=== PATIENT | male | born 2000 | race African-American/Black ===

== ENCOUNTER 2019-06-27 12:42 | Emergency (ER) | payer BC ==
--- NOTE | 2019-06-27 15:22 | EDPHYS ---
Physician Documentation [facility] Name: Kyle Patton Age: 18 yrs Sex: Male : 2000 Arrival Date: 06/27/2019 Time: 12:52 Bed 27 Private MD: ED Physician Jonathan Rivero HPI: 06/27 16:21 This 18 yrs old Black Male presents to ER via Ambulatory with complaints of Sore Throat.snw 16:21 The patient presents with sore throat. The patient describes throat pain as swollen . snw Onset: The symptoms/episode began/occurred suddenly. Severity of symptoms: At their worst the symptoms were moderate. Associated signs and symptoms: Pertinent negatives chest pain, cough, fever, headache, shortness of breath. It is unknown whether or not the patient has had similar symptoms in the past. It is unknown whether or not the patient has recently seen a physician. Historical: - Allergies: 13:09 No Known Allergies; ca1 - Home Meds: 13:09 None [Active]; ca1 - PMHx: 13:09 Asthma; ca1 - PSHx: 13:09 None; ca1 - Immunization history:: Adult Immunizations up to date, Flu vaccine is not up to date. - Coronavirus screen:: The patient has NOT traveled to [place] in the past 14 days. The patient has NOT had contact with known/suspected case of Coronavirus?. - Social history:: Smoking status: Reported history of juuling and/or vaping. - Ebola Screening: : Patient negative for fever greater than or equal to 101.5 degrees Fahrenheit, and additional compatible Ebola Virus Disease symptoms Patient denies exposure to infectious person Patient denies travel to an Ebola-affected area in the 21 days before illness onset No symptoms or risks identified at this time. ROS: 16:18 Constitutional: Negative for fever, chills, and weight loss, Eyes: Negative for injury, snw pain, redness, and discharge, Neck: Negative for injury, pain, and swelling, Cardiovascular: Negative for chest pain, palpitations, and edema, Respiratory: Negative for shortness of breath, cough, wheezing, and pleuritic chest pain, Abdomen/GI: Negative for abdominal pain, nausea, vomiting, diarrhea, and constipation, Back: Negative for injury and pain, : Negative for injury, bleeding, discharge, and swelling, MS/Extremity: Negative for injury and deformity, Skin: Negative for injury, rash, and discoloration, Neuro: Negative for headache, weakness, numbness, tingling, and seizure, Psych: Negative for depression, anxiety, suicide ideation, homicidal ideation, and hallucinations. 16:18 ENT: Positive for sore throat, feels swollen. Exam: 16:15 Constitutional: This is a well developed, well nourished patient who is awake, alert, snw and in no acute distress. Head/Face: Normocephalic, atraumatic. Eyes: Pupils equal round and reactive to light, extra-ocular motions intact. Lids and lashes normal. Conjunctiva and sclera are non-icteric and not injected. Cornea within normal limits. Periorbital areas with no swelling, redness, or edema. Neck: Trachea midline, no thyromegaly or masses palpated, and no cervical lymphadenopathy. Supple, full range of motion without nuchal rigidity, or vertebral point tenderness. No Meningismus. Chest/axilla: Normal chest wall appearance and motion. Nontender with no deformity. No lesions are appreciated. Cardiovascular: Regular rate and rhythm with a normal S1 and S2. No gallops, murmurs, or rubs. Normal PMI, no JVD. No pulse deficits. Respiratory: Lungs have equal breath sounds bilaterally, clear to auscultation and percussion. No rales, rhonchi or wheezes noted. No increased work of breathing, no retractions or nasal flaring. Abdomen/GI: Soft, non-tender, with normal bowel sounds. No distension or tympany. No guarding or rebound. No evidence of tenderness throughout. Back: No spinal tenderness. No costovertebral tenderness. Full range of motion. Skin: Warm, dry with normal turgor. Normal color with no rashes, no lesions, and no evidence of cellulitis. MS/ Extremity: Pulses equal, no cyanosis. Neurovascular intact. Full, normal range of motion. Neuro: Awake and alert, GCS 15, oriented to person, place, time, and situation. Cranial nerves II-XII grossly intact. Motor strength 5/5 in all extremities. Sensory grossly intact. Cerebellar exam normal. Normal gait. Psych: Awake, alert, with orientation to person, place and time. Behavior, mood, and affect are within normal limits. 16:15 ENT: External ear(s): are unremarkable, Ear canal(s): erythema, TM's: fluid levels, bilaterally, Nose: is normal, Mouth: is normal, Posterior pharynx: erythema, that is mild, Voice: is normal. Vital Signs: 13:09 BP 132 / 86; Pulse 67; Resp 16 S; Temp 98.4(O); Pulse Ox 100% on R/A; Weight 89.81 kg ca1 (R); Height 5 ft. 10 in. (177.80 cm) (R); Pain 1/10; 14:39 BP 110 / 76; Pulse 58; Resp 14; Temp 98.9; Pulse Ox 99% on R/A; Pain 4/10; ch 15:32 BP 112 / 68; Pulse 60; Resp 14; Temp 98.7; Pulse Ox 99% on R/A; Pain 2/10; ch 13:09 Body Mass Index 28.41 (89.81 kg, 177.80 cm) ca1 MDM: 15:07 Patient medically screened. snw 15:57 Data reviewed: vital signs, nurses notes. Data interpreted: Pulse oximetry: on room air snw is 99 %. Interpretation: normal. Counseling: I had a detailed discussion with the patient and/or guardian regarding: the historical points, exam findings, and any diagnostic results supporting the discharge/admit diagnosis, lab results, the need for outpatient follow up, to return to the emergency department if symptoms worsen or persist or if there are any questions or concerns that arise at home. Special discussion: Based on the history and exam findings, there is no indication for further emergent testing or inpatient evaluation. I discussed with the patient/guardian the need to see the primary care provider for further evaluation of the symptoms. 06/27 13:10 Order name: Strep ca1 06/27 13:24 Order name: Group A Streptococcus Rapid Sc; Complete Time: 14:06 EDMS Administered Medications: 15:30 Drug: Augmentin 875 mg Route: PO; ch 15:34 Follow up: Response: No adverse reaction; Medication administered at discharge. ch 15:30 Drug: Decadron 8 mg Route: PO; ch 15:34 Follow up: Response: No adverse reaction ch Disposition: 17:32 Co-signature as Attending Physician, Jonathan Rivero MD I agree with the assessment and kdr plan of care. Disposition: 06/27/19 15:20 Discharged to Home. Impression: Acute serous otitis media, Acute pharyngitis. - Condition is Stable. - Discharge Instructions: Otitis Media, Adult, Fever, Adult, Pharyngitis, Pharyngitis, [id number], Rehydration, Adult. - Prescriptions for Augmentin 875- 125 mg Oral Tablet - take 1 tablet by ORAL route every 12 hours for 10 days; 20 tablet. Prednisone 20 mg Oral Tablet - take 1 tablet by ORAL route once daily for 5 days; 5 tablet. - Work release form, Medication Reconciliation Form, Thank You Letter, Antibiotic Education, Prescription Opioid Use form. - Follow up: Emergency Department; When: As needed; Reason: Worsening of condition. Follow up: Private Physician; When: 2 - 3 days; Reason: Recheck today's complaints, Continuance of care, Re-evaluation by your physician. Signatures: Dispatcher [employer] EDDelilah Cruz RN RN Jonathan Rivero MD MD [facility] Radha Rivera, CHICKEN CLEANER-C CHICKEN CLEANER-Csnw Dyana Mcclure RN RN ca1 Corrections: (The following items were deleted from the chart) 15:35 15:20 06/27/2019 15:20 Discharged to Home. Impression: Acute serous otitis media; Acute ch pharyngitis. Condition is Stable. Forms are Medication Reconciliation Form, Thank You Letter, Antibiotic Education, Prescription Opioid Use. Follow up: Emergency Department; When: As needed; Reason: Worsening of condition. Follow up: Private Physician; When: 2 - 3 days; Reason: Recheck today's complaints, Continuance of care, Re-evaluation by your physician. snw
--- NOTE | 2019-06-27 15:22 | ER ---
Nurse's Notes [facility] Name: Kyle Patton Age: 18 yrs Sex: Male : 2000 Arrival Date: 06/27/2019 Time: 12:52 Bed 27 Private MD: Diagnosis: Acute serous otitis media;Acute pharyngitis Presentation: 06/27 13:07 Presenting complaint: Patient states: I think my throat maybe swollen since last night. ca1 Denies cough, congestion, ear pain, fever. Transition of care: patient was not received from another setting of care. Onset of symptoms was June 27, 2019. Risk Assessment: Do you want to hurt yourself or someone else? Patient reports no desire to harm self or others. Initial Sepsis Screen: Does the patient meet any 2 criteria? No. Patient's initial sepsis screen is negative. Does the patient have a suspected source of infection? No. Patient's initial sepsis screen is negative. Care prior to arrival: None. 13:07 Method Of Arrival: Ambulatory ca1 13:07 Acuity: BILL 4 ca1 Triage Assessment: 15:34 General: Appears in no apparent distress. comfortable, Behavior is calm, cooperative, ch appropriate for age. Historical: - Allergies: 13:09 No Known Allergies; ca1 - Home Meds: 13:09 None [Active]; ca1 - PMHx: 13:09 Asthma; ca1 - PSHx: 13:09 None; ca1 - Immunization history:: Adult Immunizations up to date, Flu vaccine is not up to date. - Coronavirus screen:: The patient has NOT traveled to [place] in the past 14 days. The patient has NOT had contact with known/suspected case of Coronavirus?. - Social history:: Smoking status: Reported history of juuling and/or vaping. - Ebola Screening: : Patient negative for fever greater than or equal to 101.5 degrees Fahrenheit, and additional compatible Ebola Virus Disease symptoms Patient denies exposure to infectious person Patient denies travel to an Ebola-affected area in the 21 days before illness onset No symptoms or risks identified at this time. Screenin:30 Abuse screen: Denies threats or abuse. Denies injuries from another. Nutritional ch screening: No deficits noted. Tuberculosis screening: No symptoms or risk factors identified. Fall Risk None identified. Assessment: 14:30 General: Appears in no apparent distress. comfortable. Pain: Complains of pain in ch throat. Neuro: No deficits noted. Cardiovascular: Heart tones S1 S2 present Capillary refill < 3 seconds in bilateral fingers toes. Respiratory: Airway is patent Trachea midline Respiratory effort is even, unlabored, Breath sounds with wheezes bilaterally. GI: No signs and/or symptoms were reported involving the gastrointestinal system. EENT: Throat is reddened has enlarged tonsils bilaterally. Derm: Skin is normal, black. Musculoskeletal: No signs and/or symptoms reported regarding the musculoskeletal system. 14:39 Reassessment: Patient appears in no apparent distress at this time. Patient and/or ch family updated on plan of care and expected duration. Pain level reassessed. Patient is alert, oriented x 3, equal unlabored respirations, skin warm/dry/pink. 15:32 Reassessment: Patient appears in no apparent distress at this time. Patient and/or ch family updated on plan of care and expected duration. Pain level reassessed. Patient is alert, oriented x 3, equal unlabored respirations, skin warm/dry/pink. Patient states feeling better. Patient states symptoms have improved. Vital Signs: 13:09 BP 132 / 86; Pulse 67; Resp 16 S; Temp 98.4(O); Pulse Ox 100% on R/A; Weight 89.81 kg ca1 (R); Height 5 ft. 10 in. (177.80 cm) (R); Pain 1/10; 14:39 BP 110 / 76; Pulse 58; Resp 14; Temp 98.9; Pulse Ox 99% on R/A; Pain 4/10; ch 15:32 BP 112 / 68; Pulse 60; Resp 14; Temp 98.7; Pulse Ox 99% on R/A; Pain 2/10; ch 13:09 Body Mass Index 28.41 (89.81 kg, 177.80 cm) ca1 ED Course: 12:52 Patient arrived in ED. fj1 12:55 Radha Rivera FNP-C [facility]. snw 12:55 Jonathan Rivero MD is Attending Physician. snw 13:08 Triage completed. ca1 13:09 Arm band placed on right wrist. ca1 14:29 Delilah Fontana, CRISTIAN is Primary Nurse. ch 14:30 No apparent distress. Resting quietly. ch 14:30 Patient has correct armband on for positive identification. Bed in low position. Call light in reach. Side rails up X 1. Pulse ox on. NIBP on. 14:30 No provider procedures requiring assistance completed. Patient did not have IV access during this emergency room visit. 15:34 Strep Sent. Administered Medications: 15:30 Drug: Augmentin 875 mg Route: PO; 15:34 Follow up: Response: No adverse reaction; Medication administered at discharge. 15:30 Drug: Decadron 8 mg Route: PO; 15:34 Follow up: Response: No adverse reaction Outcome: 15:20 Discharge ordered by MD. jason 15:32 Discharged to home ambulatory. 15:32 Condition: good 15:32 Discharge instructions given to patient, Instructed on discharge instructions, follow up and referral plans. medication usage, Demonstrated understanding of instructions, follow-up care, medications, Prescriptions given X 2. 15:35 Patient left the ED. Signatures: Delilah Fontana RN RN Radha Rivera, HEMATOLOGY SPECIALIST-C HEMATOLOGY SPECIALIST-Csnw Dyana Mcclure RN RN [facility] Balwinder Cerda fj
[2019-06-27] MEDS ORDERED: dexAMETHasone 4 MG TAB ONE (15:27)
[2019-06-27] MEDS ORDERED: AMOX/K CLAV 875 MG TAB ONE (15:28)
[2019-06-28 20:41] VITALS: O2SAT 99
[2019-06-28 20:42] VITALS: BP 112/68; TEMP 98.7
== END 2019-06-27 15:35 | disposition home or self-care (01) ==
LOC: ER 12:42
DX: H65.03 Acute serous otitis media, bilateral (principal); F17.290 Nicotine dependence, other tobacco product, uncomplicated
CPT/HCPCS: 87070; 87081; 99284; J8540

== ENCOUNTER 2019-08-22 14:16 | Emergency (ER) | payer BC, OTHER ==
[2019-08-22 17:47] VITALS: BP 125/72; TEMP 101.1; O2SAT 97
== END 2019-08-22 17:24 | disposition home or self-care (01) ==
LOC: ER 14:16
DX: R19.7 Diarrhea, unspecified (principal); E87.6 Hypokalemia; R53.81 Other malaise; R53.83 Other fatigue
CPT/HCPCS: 87040 ×2; 87070; 85025; 36415; 87081; 80053; 87804 ×2; 71045; 96374; 99284; U0001; J0696

== ENCOUNTER 2019-09-26 14:51 | Emergency (ER) | payer BC ==
--- NOTE | 2019-09-26 15:19 | ER ---
Nurse's Notes [facility] Name: Kyle Patton Age: 19 yrs Sex: Male : 2000 Arrival Date: 09/26/2019 Time: 14:56 Bed 20 Private MD: Diagnosis: Encounter for screening, unspecified Presentation: 09/25 15:07 Chief complaint: Patient states: mother tested positive for Covid yesterday, pt has no em fever, shortness of breath, or weakness, would like for us to test pt. Coronavirus screen: Proceed with normal triage. Patient denies a cough. Patient denies shortness of breath or difficulty breathing. Patient denies measured and/or subjective temperature greater than 100.4F prior to today's visit. Patient denies travel on a cruise ship or to a country the [facility] currently lists as an affected area. Patient denies contact with known and/or suspected case of COVID-19. Ebola Screen: Patient negative for fever greater than or equal to 101.5 degrees Fahrenheit, and additional compatible Ebola Virus Disease symptoms Patient denies exposure to infectious person. Patient denies travel to an Ebola-affected area in the 21 days before illness onset. No symptoms or risks identified at this time. Initial Sepsis Screen: Does the patient meet any 2 criteria? No. Patient's initial sepsis screen is negative. Does the patient have a suspected source of infection? No. Patient's initial sepsis screen is negative. Risk Assessment: Do you want to hurt yourself or someone else? Patient reports no desire to harm self or others. Onset of symptoms was September 26, 2019. 15:07 Method Of Arrival: Ambulatory em 15:07 Acuity: BILL 5 em Historical: - Allergies: 15:09 No Known Allergies; em - Home Meds: 15:09 None [Active]; em - PMHx: 15:09 Asthma; em - PSHx: 15:09 None; em - Immunization history:: Adult Immunizations up to date. - Social history:: Smoking status: Patient reports the use of cigarette tobacco products, denies chronic smoking, but will smoke occasionally. Screenin:10 Abuse screen: Denies threats or abuse. Nutritional screening: No deficits noted. em Tuberculosis screening: No symptoms or risk factors identified. Fall Risk None identified. Assessment: 15:07 General: Appears in no apparent distress. comfortable, Behavior is calm, cooperative, em appropriate for age, Denies fever. Pain: Denies pain. Neuro: Level of Consciousness is awake, alert, obeys commands, Oriented to person, place, time, situation, Appropriate for age. Cardiovascular: Denies chest pain, shortness of breath, Capillary refill < 3 seconds Patient's skin is warm and dry. Respiratory: Airway is patent Respiratory effort is even, unlabored, Respiratory pattern is regular, symmetrical, Denies cough, shortness of breath labored breathing. GI: Abdomen is flat. Derm: Skin is intact, is healthy with good turgor, Skin is pink, warm \T\ dry. Musculoskeletal: Capillary refill < 3 seconds, Range of motion: intact in all extremities. Vital Signs: 15:07 BP 121 / 80; Pulse 88; Resp 20; Temp 98.3(O); Pulse Ox 100% on R/A; Pain 0/10; em ED Course: 14:56 Patient arrived in ED. mr 15:07 Ramon Martins, RN is Primary Nurse. em 15:09 Triage completed. em 15:09 Arm band placed on. EKG completed in triage. Results shown to MD. EKG completed in em triage. Results shown to MD. 15:10 Patient has correct armband on for positive identification. em 15:11 Radha Rivera FNP-C is PHCP. snw 15:11 Melani Sanchez MD is Attending Physician. snw 15:29 No provider procedures requiring assistance completed. Patient did not have IV access em during this emergency room visit. Administered Medications: No medications were administered Outcome: 15:18 Discharge ordered by MD. snw 15:29 Discharged to home ambulatory. em 15:29 Condition: good 15:29 Discharge instructions given to patient, Instructed on discharge instructions, follow up and referral plans. Demonstrated understanding of instructions, follow-up care. 15:30 Patient left the ED. em Signatures: Radha Rivera FNP-C FNP-Terry TomasaPenny Ramon Martins, RN RN em
--- NOTE | 2019-09-26 15:20 | EDPHYS ---
Physician Documentation [facility] Name: Kyle Patton Age: 19 yrs Sex: Male : 2000 Arrival Date: 09/26/2019 Time: 14:56 Bed 20 Private MD: ED Physician Melani Sanchez HPI: 09/25 15:20 This 19 yrs old Black Male presents to ER via Ambulatory with complaints of COVID Test. snw 15:20 Onset: The symptoms/episode began/occurred no symptoms. Associated signs and symptoms: snw The patient has no apparent associated signs or symptoms. The patient has not experienced similar symptoms in the past. The patient has not recently seen a physician. Mom tested + for CoVid 19. Historical: - Allergies: 15:09 No Known Allergies; em - Home Meds: 15: None [Active]; em - PMHx: 15:09 Asthma; em - PSHx: 15:09 None; em - Immunization history:: Adult Immunizations up to date. - Social history:: Smoking status: Patient reports the use of cigarette tobacco products, denies chronic smoking, but will smoke occasionally. ROS: 15:19 Constitutional: Negative for fever, chills, and weight loss, Eyes: Negative for injury, snw pain, redness, and discharge, ENT: Negative for injury, pain, and discharge, Neck: Negative for injury, pain, and swelling, Cardiovascular: Negative for chest pain, palpitations, and edema, Respiratory: Negative for shortness of breath, cough, wheezing, and pleuritic chest pain, Abdomen/GI: Negative for abdominal pain, nausea, vomiting, diarrhea, and constipation, Back: Negative for injury and pain, : Negative for injury, bleeding, discharge, and swelling, MS/Extremity: Negative for injury and deformity, Skin: Negative for injury, rash, and discoloration, Neuro: Negative for headache, weakness, numbness, tingling, and seizure, Psych: Negative for depression, anxiety, suicide ideation, homicidal ideation, and hallucinations. Exam: 15:19 Constitutional: This is a well developed, well nourished patient who is awake, alert, snw and in no acute distress. Head/Face: Normocephalic, atraumatic. Eyes: Pupils equal round and reactive to light, extra-ocular motions intact. Lids and lashes normal. Conjunctiva and sclera are non-icteric and not injected. Cornea within normal limits. Periorbital areas with no swelling, redness, or edema. ENT: Nares patent. No nasal discharge, no septal abnormalities noted. Tympanic membranes are normal and external auditory canals are clear. Oropharynx with no redness, swelling, or masses, exudates, or evidence of obstruction, uvula midline. Mucous membranes moist. Neck: Trachea midline, no thyromegaly or masses palpated, and no cervical lymphadenopathy. Supple, full range of motion without nuchal rigidity, or vertebral point tenderness. No Meningismus. Chest/axilla: Normal chest wall appearance and motion. Nontender with no deformity. No lesions are appreciated. Cardiovascular: Regular rate and rhythm with a normal S1 and S2. No gallops, murmurs, or rubs. Normal PMI, no JVD. No pulse deficits. Respiratory: Lungs have equal breath sounds bilaterally, clear to auscultation and percussion. No rales, rhonchi or wheezes noted. No increased work of breathing, no retractions or nasal flaring. Abdomen/GI: Soft, non-tender, with normal bowel sounds. No distension or tympany. No guarding or rebound. No evidence of tenderness throughout. Back: No spinal tenderness. No costovertebral tenderness. Full range of motion. Skin: Warm, dry with normal turgor. Normal color with no rashes, no lesions, and no evidence of cellulitis. MS/ Extremity: Pulses equal, no cyanosis. Neurovascular intact. Full, normal range of motion. Neuro: Awake and alert, GCS 15, oriented to person, place, time, and situation. Cranial nerves II-XII grossly intact. Motor strength 5/5 in all extremities. Sensory grossly intact. Cerebellar exam normal. Normal gait. Psych: Awake, alert, with orientation to person, place and time. Behavior, mood, and affect are within normal limits. Vital Signs: 15:07 BP 121 / 80; Pulse 88; Resp 20; Temp 98.3(O); Pulse Ox 100% on R/A; Pain 0/10; em MDM: 15:12 Patient medically screened. snw 15:21 Data reviewed: vital signs, nurses notes. Counseling: I had a detailed discussion with snw the patient and/or guardian regarding: the historical points, exam findings, and any diagnostic results supporting the discharge/admit diagnosis, the need for outpatient follow up, to return to the emergency department if symptoms worsen or persist or if there are any questions or concerns that arise at home. Special discussion: Based on the history and exam findings, there is no indication for further emergent testing or inpatient evaluation. I discussed with the patient/guardian the need to see the primary care provider for further evaluation of the symptoms. Administered Medications: No medications were administered Disposition: 09/26/19 15:18 Discharged to Home. Impression: Encounter for screening, unspecified. - Condition is Stable. - Discharge Instructions: Fever, Adult, [id number]. - Medication Reconciliation Form, Thank You Letter, Antibiotic Education, Prescription Opioid Use form. - Follow up: Emergency Department; When: As needed; Reason: Worsening of condition. Follow up: Private Physician; When: Today; Reason: CoVid19 testing 2nd to + household contact. - Notes: Please avoid Motrin. F/u as directed for testing. Be safe Addendum: 09/28/2019 18:21 Co-signature as Attending Physician, Melani Sanchez MD. m a2 Signatures: Radha Rivera, TEST HOLE DRILLER-C TEST HOLE DRILLER-Csnw Ramon Martins, RN RN em Melani Sanchez MD MD ma2 Corrections: (The following items were deleted from the chart) 09/25 15:30 15:18 09/26/2019 15:18 Discharged to Home. Impression: Encounter for screening, em unspecified. Condition is Stable. Forms are Medication Reconciliation Form, Thank You Letter, Antibiotic Education, Prescription Opioid Use. Follow up: Emergency Department; When: As needed; Reason: Worsening of condition. Follow up: Private Physician; When: Today; Reason: CoVid19 testing 2nd to + household contact. snw
[2019-09-26 15:37] VITALS: BP 121/80; TEMP 98.3; O2SAT 100
== END 2019-09-26 15:30 | disposition home or self-care (01) ==
LOC: ER 14:51
DX: Z20.828 Contact with and (suspected) exposure to other viral communicable diseases (principal); F17.210 Nicotine dependence, cigarettes, uncomplicated
CPT/HCPCS: 99281

== ENCOUNTER 2021-03-30 08:24 | Emergency (ER) | payer BC ==
--- NOTE | 2021-03-30 08:41 | EDPHYS ---
Physician Documentation [facility] Name: Kyle Patton Age: 20 yrs Sex: Male : 2000 Arrival Date: 03/30/2021 Time: 08:26 Bed Waiting Private MD: ED Physician Reynaldo Gilmore HPI: 03/30 08:35 This 20 yrs old Black Male presents to ER via Unassigned with complaints of Toothache, rn congestion, muffled hearing. 08:35 The patient presents with pain. The problem is located in the Left upper maxillary. rn Onset: The symptoms/episode began/occurred yesterday. Duration: The symptoms are intermittent. Modifying factors: The symptoms are alleviated by nothing, the symptoms are aggravated by nothing. Associated signs and symptoms: Pertinent positives: Subjective fever, muffled hearing on the left ear. Severity of symptoms: At their worst the symptoms were mild, in the emergency department the symptoms are unchanged. The patient has not experienced similar symptoms in the past. The patient has not recently seen a physician. Patient reports upper maxillary pain associated with nasal congestion and stopped up left ear since yesterday. Also reports subjective fever. Denies cough or shortness of breath. Denies diarrhea or vomiting. Denies headache. States does not feel like tooth itself hurts more along the gumline.. Historical: - Allergies: 08:33 No Known Allergies; tw2 - Home Meds: 08:33 None [Active]; tw2 - PMHx: 08:33 Asthma; tw2 - Immunization history:: Client reports having NOT received the Covid vaccine. - Social history:: Smoking status: Patient denies any tobacco usage or history of. - Family history:: not pertinent. - Hospitalizations: : No recent hospitalization is reported. ROS: 08:35 Constitutional: Negative for fever, chills, and weight loss, Eyes: Negative for injury, rn pain, redness, and discharge, ENT: Positive for congestion and maxillary pain Neck: Negative for injury, pain, and swelling, Cardiovascular: Negative for chest pain, palpitations, and edema, Respiratory: Negative for shortness of breath, cough, wheezing, and pleuritic chest pain, Abdomen/GI: Negative for abdominal pain, nausea, vomiting, diarrhea, and constipation, Back: Negative for injury and pain, MS/Extremity: Negative for injury and deformity, Skin: Negative for injury, rash, and discoloration, Neuro: Negative for headache, weakness, numbness, tingling, and seizure. Exam: 08:37 Constitutional: This is a well developed, well nourished patient who is awake, alert, rn and in no acute distress. Head/Face: Normocephalic, atraumatic. Eyes: Periorbital areas with no swelling, redness, or edema. ENT: Oropharynx with no redness, swelling, or masses, exudates, or evidence of obstruction, uvula midline. Mucous membranes moist. No oral abscess identified. No deep cavities or focal dental pain. Mild tenderness left maxillary sinus palpation and pressure Cardiovascular: Regular rate and rhythm. No pulse deficits. Respiratory: No increased work of breathing, no retractions or nasal flaring. Vital Signs: 08:33 BP 139 / 92; Pulse 101; Resp 18; Temp 98.6(TE); Pulse Ox 95% on R/A; tw2 MDM: 08:27 Patient medically screened. rn 08:37 Differential diagnosis: dental caries, gingivitis, sinusitis. Differential diagnosis: rn dental abscess. Data reviewed: vital signs, nurses notes. Data reviewed: and as a result, I will discharge patient. Counseling: I had a detailed discussion with the patient and/or guardian regarding: the historical points, exam findings, and any diagnostic results supporting the discharge/admit diagnosis, the need for outpatient follow up, to return to the emergency department if symptoms worsen or persist or if there are any questions or concerns that arise at home. Special discussion: I discussed with the patient/guardian in detail that at this point there is no indication for admission to the hospital. It is understood, however, that if the symptoms persist or worsen the patient needs to return immediately for re-evaluation. 08:37 ED course: Could be early dental infection versus early sinusitis given left maxillary rn sinus pressure and pain with reference to upper maxillary teeth. Patient also with congestion and left ear muffled hearing. Will put on antibiotics with PCP follow-up and return precautions.. 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
--- NOTE | 2021-03-30 08:41 | ER ---
Nurse's Notes [facility] Name: Kyle Patton Age: 20 yrs Sex: Male : 2000 Arrival Date: 03/30/2021 Time: 08:26 Bed Waiting Private MD: Diagnosis: Dental pain;Acute maxillary sinusitis, unspecified Presentation: 03/30 08:[address] Gilmore in triage room performing assessment at this time. Onset of tw2 symptoms was March 30, 2021. 08:33 Chief complaint: Patient states: toothache and fever. Coronavirus screen: At this time, tw2 the client does not indicate any symptoms associated with coronavirus-19. Ebola Screen: Patient denies travel to an Ebola-affected area in the 21 days before illness onset. Initial Sepsis Screen: Does the patient meet any 2 criteria? HR > 90 bpm. No. Patient's initial sepsis screen is negative. Does the patient have a suspected source of infection? No. Patient's initial sepsis screen is negative. Risk Assessment: Do you want to hurt yourself or someone else? Patient reports no desire to harm self or others. 08:33 Method Of Arrival: Ambulatory tw2 08:33 Acuity: BILL 4 tw2 Triage Assessment: 08:33 General: Appears in no apparent distress. Behavior is calm, cooperative, appropriate tw2 for age. General: Reports fever for. Pain: Complains of pain in toothache. EENT: Reports pain. 08:33 Neuro: Level of Consciousness is awake, alert, obeys commands, Oriented to person, tw2 place, time, situation. Respiratory: Airway is patent Respiratory effort is even, unlabored, Respiratory pattern is regular, symmetrical. Historical: - Allergies: 08:33 No Known Allergies; tw2 - Home Meds: 08:33 None [Active]; tw2 - PMHx: 08:33 Asthma; tw2 - Immunization history:: Client reports having NOT received the Covid vaccine. - Social history:: Smoking status: Patient denies any tobacco usage or history of. - Family history:: not pertinent. - Hospitalizations: : No recent hospitalization is reported. Screenin:33 Abuse screen: Denies threats or abuse. Nutritional screening: No deficits noted. tw2 Tuberculosis screening: No symptoms or risk factors identified. Fall Risk None identified. Assessment: 08:47 Reassessment: Patient appears in no apparent distress at this time. No changes from tw2 previously documented assessment. Patient and/or family updated on plan of care and expected duration. Pain level reassessed. Patient is alert, oriented x 3, equal unlabored respirations, skin warm/dry/pink. Vital Signs: 08:33 BP 139 / 92; Pulse 101; Resp 18; Temp 98.6(TE); Pulse Ox 95% on R/A; tw2 ED Course: 08:26 Patient arrived in ED. as 08:27 Reynaldo Gilmore MD is Attending Physician. rn 08:33 Arm band placed on. tw2 08:33 pt returned to [facility], waiting on discharge papers at this time. tw2 08:49 Triage completed. tw2 08:50 Kalani Bass, CRISTIAN is Primary Nurse. tw2 08:51 No provider procedures requiring assistance completed. Patient did not have IV access tw2 during this emergency room visit. Administered Medications: No medications were administered Outcome: 08:40 Discharge ordered by . rn 08:49 Discharged to home ambulatory. tw2 08:49 Condition: stable 08:49 Discharge instructions given to patient, Instructed on discharge instructions, follow up and referral plans. medication usage, Demonstrated understanding of instructions, follow-up care, medications, Prescriptions given X 1. 08:50 Patient left the ED. tw2 08:50 Patient left the ED. tw2 Signatures: Emy Alvarenga as Reynaldo Gilmore MD MD rn Wise, Tara, RN RN tw2 Corrections: (The following items were deleted from the chart) 08:48 08:33 EENT: Reports pain tw2 tw2
[2021-03-30 08:54] VITALS: BP 139/92; TEMP 98.6; O2SAT 95
== END 2021-03-30 08:50 | disposition home or self-care (01) ==
LOC: ER 08:24
DX: J01.00 Acute maxillary sinusitis, unspecified (principal)
CPT/HCPCS: 99282